=== PATIENT | female | born 1970 | race Caucasian/White ===

== ENCOUNTER 2016-12-18 03:55 | Emergency (ER) | payer MEDICAID, OTHER ==
[~2016-12-18] VITALS: Ht 162.6 cm; Wt 75.0 kg
[2016-12-18 04:02] VITALS: BP 113/65
== END 2016-12-18 04:50 | disposition home or self-care (01) ==
LOC: EMS 03:57
DX: G89.18 Other acute postprocedural pain (principal); R10.9 Unspecified abdominal pain; R50.9 Fever, unspecified; Z85.038 Personal history of other malignant neoplasm of large intestine; Z93.3 Colostomy status; F17.210 Nicotine dependence, cigarettes, uncomplicated
CPT/HCPCS: 99281

== ENCOUNTER 2022-02-22 17:27 | Emergency (ER) | payer MEDICAID ==
[~2022-02-22] VITALS: Ht 160 cm; Wt 77.3 kg
[~2022-02-22 17:27] MED LIST: AMLO-258 PO; CAPE500T14 PO; DOCU-350 PO; LEVO100 PO; TRAM50TA4 PO
[2022-02-22 19:45] VITALS: BP 127/82
[2022-02-22] MEDS ORDERED: FURO20 PO (19:51)
== END 2022-02-22 20:10 | disposition home or self-care (01) ==
LOC: EMS 17:28
DX: R60.0 Localized edema (principal); F17.210 Nicotine dependence, cigarettes, uncomplicated; Z85.038 Personal history of other malignant neoplasm of large intestine; Z87.19 Personal history of other diseases of the digestive system; Z98.890 Other specified postprocedural states; Z91.041 Radiographic dye allergy status
CPT/HCPCS: 99283; Z7502

== ENCOUNTER 2022-12-27 03:23 | Emergency (ER) | payer MEDICAID ==
[~2022-12-27] VITALS: Ht 160 cm; Wt 77.3 kg
[~2022-12-27 03:23] MED LIST changes: +FURO20 PO; +TRAM-559 PO; -TRAM50TA4 PO
[2022-12-27 03:24] VITALS: BP 139/97
[2022-12-27] MEDS ORDERED: HYDROCODONE/ACETAMINOPHEN 5-325 MG TABLET PO ONE (05:45)
== END 2022-12-27 05:30 | disposition left against medical advice (07) ==
LOC: EMS 03:28
DX: S50.02XA Contusion of left elbow, initial encounter (principal); F17.210 Nicotine dependence, cigarettes, uncomplicated; Z98.890 Other specified postprocedural states; Z91.040 Latex allergy status; X58.XXXA Exposure to other specified factors, initial encounter; Y93.89 Activity, other specified; Y92.89 Other specified places as the place of occurrence of the external cause; Y99.8 Other external cause status
CPT/HCPCS: 99283

== ENCOUNTER 2023-11-07 13:16 | Emergency (ER) | payer MEDICAID ==
[~2023-11-07] VITALS: Ht 157.5 cm; Wt 75.0 kg
[~2023-11-07 13:16] MED LIST changes: -DOCU-350 PO; +DOCU-412 PO
[2023-11-07 14:40] VITALS: TEMP 98.5
[2023-11-07] MEDS: CEPHALEXIN MONOHYDRATE 500 MG CAPSULE PO ONE (15:08)
[2023-11-07] MEDS: PredniSONE 20 MG TABLET PO ONE (15:08)
[2023-11-07 15:22] LABS: BASOPHILS % (AUTO) 0.5 % (0.0-2.0); EOSINOPHILS % (AUTO) 4.3 % (1.0-6.0); HEMATOCRIT 39.5 % (36-46); HEMOGLOBIN 12.9 g/dL (12.0-16.0); LYMPHOCYTES # (AUTO) 1.2 K/uL (1.0-4.8); LYMPHOCYTES % (AUTO) 17.2 % (22.0-44.0); MEAN CORPUSCULAR HEMOGLOBIN 30.9 pg (26.0-34.0); MEAN CORPUSCULAR HGB CONC 32.8 G/dL (31.0-37.0); MEAN CORPUSCULAR VOLUME 94 fL (80-100); MONOCYTES # (AUTO) 0.4 K/uL (0.1-1.0); MONOCYTES % (AUTO) 5.5 % (2.0-9.0); NEUTROPHILS # (AUTO) 4.9 K/uL (1.8-7.7); NEUTROPHILS % (AUTO) 72.5 % (40.0-70.0); PLATELET COUNT (AUTO) 204 K/uL (150-450); RED BLOOD CELL COUNT(AUTO) 4.18 MIL/uL (4.00-5.20); RED CELL DISTRIBUTION WIDTH 14.6 % (11.5-14.5); WHITE BLOOD COUNT (AUTO) 6.7 K/uL (4.5-11.0)
[2023-11-07 15:31] LABS: ANION GAP 7 mmol/L (8-16); CALCIUM, TOTAL 9.3 mg/dL (8.8-10.5); CARBON DIOXIDE 29 mmol/L (22-29); CHLORIDE 100 mmol/L (98-107); CREATININE 0.88 mg/dL (0.60-1.30); GLOMERULAR FILTR. RATE CALC > 60 mL/min (>60); GLUCOSE,RANDOM 110 mg/dL (70-110); POTASSIUM 3.5 mmol/L (3.5-5.1); SODIUM SERUM 136 mmol/L (136-145); UREA NITROGEN, BLOOD 13 mg/dL (7-18)
[2023-11-07 15:37] LABS: ALANINE AMINOTRANSFERASE 29 U/L (12-78); ALBUMIN 3.8 g/dL (3.4-5.0); ALKALINE PHOSPHATASE 110 U/L (46-116); ASPARTATE AMINOTRANSFERASE 81 U/L (15-37); BILIRUBIN,TOTAL 0.4 mg/dL (0.1-1.0); TOTAL PROTEIN, SERUM 7.3 g/dL (6.4-8.2)
[2023-11-07 15:38] LABS: TROPONIN I-HIGH SENSITIVITY 8 ng/L (<51)
[2023-11-07 16:34] VITALS: PULSE 87; RESP 18; O2SAT 96
[2023-11-07 16:34] LABS: INFLUENZA A-RTPCR,COMBO NEGATIVE (NEGATIVE); INFLUENZA B-RTPCR,COMBO NEGATIVE (NEGATIVE); SARS COVID19 RTPCR, COMBO NEGATIVE (NEGATIVE)
[2023-11-07] MEDS: ALBUTEROL SULFATE 2.5 MG/0.5 ML NEB SOLUTION NEB ONE (16:34)
[2023-11-07] MEDS: IPRATROPIUM BROMIDE 0.5 MG/2.5 ML NEB SOLUTION NEB ONE (16:34)
[2023-11-07] MEDS ORDERED: LOSA-381 PO (16:53)
[2023-11-07] MEDS ORDERED: LEVO100 PO (16:53)
[2023-11-07] MEDS ORDERED: PRED-554 PO (16:53)
[2023-11-07] MEDS ORDERED: CEPH-558 PO (16:53)
[2023-11-07] MEDS ORDERED: ALBU18HF12 IH (16:53)
[2023-11-07 16:59] VITALS: BP 122/84; PULSE 89; RESP 18
[2023-11-07 17:03] LABS: RESPIRATORY SYNCYTIAL VRS-PCR POSITIVE (NEGATIVE)
== END 2023-11-07 17:15 | disposition home or self-care (01) ==
LOC: EMS 13:19
DX: J44.1 Chronic obstructive pulmonary disease with (acute) exacerbation (principal); J20.5 Acute bronchitis due to respiratory syncytial virus; F17.210 Nicotine dependence, cigarettes, uncomplicated; Z93.3 Colostomy status; Z98.890 Other specified postprocedural states; Z91.040 Latex allergy status; Z20.822 Contact with and (suspected) exposure to COVID-19
CPT/HCPCS: 99284; 0241U; 71045; 80053; 84484; 85025; 36415; 94640; J7512; J7613